=== PATIENT | male | born 1965 | race Caucasian/White ===

== ENCOUNTER 2021-08-13 08:31 | Day surgery (SDC) | payer BC ==
[~2021-08-13] VITALS: Ht 180.3 cm; Wt 83.8 kg
[~2021-08-13 08:31] MED LIST: CYCL10 PO; HYDR1TAB94 PO; KETO10 PO
--- NOTE | 2021-08-13 10:11 | NUR ---
08/13/21 1011 Carly Bridges SIMETHICONE USED DURING PROCEDURE.
== END 2021-08-13 10:40 | disposition home or self-care (01) ==
LOC: ORSCSDS 08:31
PROVIDERS: Internal Medicine Gastroenterology
PROC: 0DBN8ZX Excision of Sigmoid Colon, Via Natural or Artificial Opening Endoscopic, Diagnostic (ICD-10-PCS; principal; 2021-08-13 09:45)
DX: Z12.11 Encounter for screening for malignant neoplasm of colon (principal); Z86.010 Personal history of colon polyps; K63.5 Polyp of colon; K64.8 Other hemorrhoids
CPT/HCPCS: 88305; J2704; J7120

== ENCOUNTER → 2023-01-22 | Outpatient (CLI) | payer BC | LOC: LAB 12:11 | DX: R35.1 Nocturia (principal); Z20.1 Contact with and (suspected) exposure to tuberculosis ==

== ENCOUNTER 2025-05-13 06:19 | Emergency (ER) | payer BC ==
[~2025-05-13] VITALS: Ht 180.3 cm; Wt 88.5 kg
[2025-05-13 06:40] LABS: BASOPHILS ABSOLUTE AUTO 0.08 K/mm3 (0.00-0.23); BASOPHILS PERCENT AUTO 1 % (0-2); EOSINOPHILS ABSOLUTE AUTO 0.20 K/mm3 (0.00-0.68); EOSINOPHILS PERCENT AUTO 3 % (0-6); Hematocrit 49.2 % (37.0-53.0); Hemoglobin 17.2 g/dL (13.5-17.5); IMMATURE GRAN ABSOLUTE AUTO 0.02 K/mm3 (0.00-0.10); IMMATURE GRAN PERCENT AUTO 0 % (0-1); LYMPHOCYTES ABSOLUTE AUTO 1.62 K/mm3 (0.84-5.20); LYMPHOCYTES PERCENT AUTO 21 % (21-46); MONOCYTES ABSOLUTE AUTO 0.64 K/mm3 (0.16-1.47); MONOCYTES PERCENT AUTO 8 % (4-13); Mean Corpuscular HGB Conc 35.0 g/dL (31.5-36.5); Mean Corpuscular Volume 96 fL (80-100); NEUTROPHILS ABSOLUTE AUTO 5.34 K/mm3 (1.96-9.15); NEUTROPHILS PERCENT AUTO 68 % (41-73); NRBC ABSOLUTE 0.00 K/mm3 (0.00-0.02); NRBC Auto 0.0 /100 WBC (0.0-0.2); Platelet Count 216 K/mm3 (150-400); RDW Coefficient Variation 12.3 % (11.7-14.2); RDW Standard Deviation 44.2 fL (35.1-46.3)
[2025-05-13 07:08] LABS: Alanine Aminotransfer (ALT/SGP 59.0 U/L (12-78); Albumin, Blood 4.4 g/dL (3.4-5.0); Albumin/Globulin Ratio 1.3 (0.8-1.8); Anion Gap 9.0 mmol/L (3-11); Aspartate Aminotrans (AST/SGOT 30.0 U/L (12-37); Bilirubin, Total 0.8 mg/dL (0.1-1.0); Blood Urea Nitrogen 17.0 mg/dL (8-24); CO2, Blood 27.0 mmol/L (21-32); Calcium, Blood 9.2 mg/dL (8.5-10.1); Chloride, Blood 107.0 mmol/L (98-108); Creatinine, Blood 1.1 mg/dL (0.60-1.20); Globulin, Blood 3.3 g/dL (2.2-4.0); Glucose, Blood 130.0 mg/dL (70-99); Potassium, Blood 3.9 mmol/L (3.5-5.5); Sodium, Blood 139.0 mmol/L (136-145); Total Protein, Blood 7.7 g/dL (6.4-8.2)
[2025-05-13 09:30] VITALS: BP 119/71
== END 2025-05-13 09:35 | disposition home or self-care (01) ==
LOC: ER 06:19
PROVIDERS: Emergency Medicine
DX: R07.9 Chest pain, unspecified (principal); Z59.89 Other problems related to housing and economic circumstances; Z88.0 Allergy status to penicillin
CPT/HCPCS: 71046; 80053; 83690; 84484; 85025; 85379; 93005; 93010; 99284-25